=== PATIENT | male | born 1985 | race Caucasian/White ===

== ENCOUNTER 2023-10-26 23:29 | Inpatient (IN) | payer OTHER, SELFPAY ==
[2023-10-26] VITALS (7 sets, daily range): BP systolic 86–151; BP diastolic 20–115; BMI 31.0
[2023-10-26 22:15] LABS: % Basophils 0.5 % (0-2); % Eosinophils 1.1 % (0-6); % Immature Granulocytes 0.6 % (0-0.5); % Lymphocytes 26.4 % (20.5-51.1); % Neutrophils 61.4 % (42.2-75.2); Absolute Basophils 0.1 10^3/uL (0-0.2); Absolute Eosinophils 0.2 10^3/uL (0-0.7); Absolute Immature Granulocytes 0.1 10^3/uL (0-0.05); Absolute Lymphocytes 3.8 10^3/uL (1.2-3.4); Absolute Monocytes 1.4 10^3/uL (0.1-0.6); Absolute Neutrophils 8.7 10^3/uL (1.4-6.5); Hemoglobin 13.9 g/dL (13.0-18.0); Mean Corp Hgb Conc. 35.6 g/dL (33.0-37.0); Mean Corpuscular Hgb 31.8 pg (27.0-31.0); Mean Corpuscular Volume 89.2 fL (80.0-94.0); Mean Platelet Volume 8.5 fL (7.4-10.4); Nucleated Red Blood Cells % 0 % (-); Platelet Count 222 10^3/uL (130-400); Red Blood Cell Count 4.37 10^6/uL (4.70-6.10); Red Cell Dist. Width 11.6 % (11.5-14.5); White Blood Cell Count 14.2 10^3/uL (4.8-10.8)
--- NOTE | 2023-10-26 22:19 | ED.GENMED ---
History of Present Illness
General
Chief Complaint: Chest Pain
Source: patient and family
Exam Limitations: none
Time Seen by Provider: 10/26/23 22:06
Nursing documentation reviewed up to this point in time: agreed with
Travel History
Have you had any contact with someone who has COVID-19?: No
Do you have any symptoms of coronavirus? Fever > 100 degrees, chills, cough, shortness of breath, sore throat, loss of taste or smell, muscle aches, or headache?: No
History of Present Illness
History of Present Illness:
38-year-old male that presents with substernal chest pain that began around 8 AM this morning and quickly subsided. He states that around 8 PM, the pain returned and persisted. He states that the pain was initially 7 out of 10. Upon arrival to
the emergency department, his pain was 5 out of 10. It is currently 5 out of 10. EKG showed inferior STEMI. Patient denies any drug use, Specifically no cocaine use. Patient denies any current cardiac history. He reports no early cardiac
history in his family. Dr. Zimmerman, interventional cardiology notified. STEMI alert called at [id number]. Patient received Brilinta, aspirin, and heparin.
Review of Systems
Review of Systems
Allergies reviewed?: Yes
Other source history: family
All Other Systems: ROS reviewed and negative except as documented in HPI and ROS
Constitutional: Reports no symptoms
EENT: Reports no symptoms
Respiratory: Reports no symptoms
Cardiac: Reports chest pain
ABD/GI: Reports no symptoms
: Reports no symptoms
Musculoskeletal: Reports no symptoms
Skin: Reports no symptoms
Neurological: Reports no symptoms
Endocrine: Reports no symptoms
Hematologic/Lymphatic: Reports no symptoms
Psychiatric: Reports no symptoms
Phy Exam
General Physical Exam
General Presentation: well appearing and no apparent distress
General Skin: warm and dry
General Habitus: normal
General Mental: alert
General Hydration: appears well hydrated
ENT Exam
ENT Exam: EOMI, pharynx normal, neck supple and normocephalic
Eye Exam
Eye Exam: PERRL, cornea clear and conjunctiva normal
Cardiovascular Exam
Cardiovascular Exam: regular rate/rhythm, no edema, no murmur and normal peripheral pulses
Pulmonary Exam
Pulmonary Exam: lungs clear, no respiratory distress, no rales, no crackles, no rhonchi, no stridor, no wheezing and no cough
Gastrointestinal Exam
Gastrointestinal Exam: normal bowel sounds, non tender, soft, no organomegaly, no pulsatile mass and non distended
Neurological Exam
Neurological Exam: alert, oriented x3, no motor deficits and speech normal
Musculoskeletal Exam
Musculoskeletal Exam: full ROM and no edema
Skin Exam
Skin Exam: normal color, warm/dry, no rash and no petechia
Psychiatric Exam
Psychiatric Exam: normal mood/affect
Scores
Heart Score for Chest Pain Patients
STEMI patient?: Yes
Course
Orders/Labs/Results
Orders:
Orders
10/26/23 21:56
Electrocardiogram (*1) Urgent
Reason for Study: Chest Pain
EKG- Treatment ONCE
10/26/23 22:06
Aspirin Chewable [Low Strength Aspirin] 324 mg PO NOW STA
10/26/23 22:07
Electrocardiogram (*1) Stat
Reason for Study: Other
Other Reason for Exam: chest pain
EKG- Treatment ONCE
CR Chest Portable - 1 View Urgent
Comment:
Reason For Exam: cp
Reason Study Needs to be Portable: Unable to Transport
10/26/23 22:10
Complete Blood Count/With Diff Urgent
Comprehensive Metabolic Panel Urgent
Lipase Urgent
Magnesium Urgent
PTT Urgent
Prothrombin Time Urgent
TSH Urgent
Troponin I Urgent
10/26/23 22:15
Heparin 08097 Units/250 ml 25,000 units in 250 ml .ROUTE .STK-MED
Abnormal Lab Results
10/26/23
22:10
WBC 14.2 H 10^3/uL
(4.8-10.8)
RBC 4.37 L 10^6/uL
(4.70-6.10)
MCH 31.8 H pg
(27.0-31.0)
Abs Immat Gran (auto) 0.1 H 10^3/uL
(0-0.05)
Absolute Neuts (auto) 8.7 H 10^3/uL
(1.4-6.5)
Absolute Lymphs (auto) 3.8 H 10^3/uL
(1.2-3.4)
Absolute Monos (auto) 1.4 H 10^3/uL
(0.1-0.6)
Immature Gran % 0.6 H %
(0-0.5)
Monocytes % 10.0 H %
(1.7-9.3)
10/26/23 22:10
Vital Signs
Initial and Last Documented VS:
Initial Vital Signs
Temp Pulse Resp BP Pulse Ox
98.2 F 91 18 133/115 97
10/26/23 21:53 10/26/23 21:53 10/26/23 21:53 10/26/23 21:53 10/26/23 21:53
Last Documented Vital Signs
Temp Pulse Resp BP Pulse Ox
98.2 F 113 20 127/89 100
10/26/23 21:53 10/26/23 22:16 10/26/23 22:16 10/26/23 22:16 10/26/23 22:21
*Sole Dyer Interpretation
Rate: normal
Heart Rate: 98
Rhythm: sinus
*Critical Care Note
Total Time (30-74mins, 75-104mins- exclusive of procedures): 15
comment:
Critical care statement: A total of 15 minutes of critical care time was provided for this patient. This time is separate from time utilized to perform the aforementioned documented procedures. Aggregate critical care time includes only time
during which I was engaged in work directly related to the patient's care, as described above, whether at the bedside or elsewhere in the Emergency Department.
ED Attending Note
-
Portions of this chart may have been created with voice recognition software.� Occasional wrong word or��sound alike� substitutions may have occurred due to the inherent limitations of voice recognition software.
Discharge Plan
Departure
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
Date of Disposition: 10/26/23
Time of Disposition: 22:08
Admit to: [facility]
Admit to doctor: Elsie
Presentation/result/management discussed w/ accepting MD/DO: Elsie
Condition: Serious
Discharge Problem:
ST elevation (STEMI) myocardial infarction
Interventions
Interventions:
*Risk Screen - Suicide Last Done: 10/26/23 21:53
*General Assessment Last Done: 10/26/23 21:53
*Neglect/Abuse Screening Last Done: 10/26/23 21:53
ED- Fall Risk Assessment Last Done: 10/26/23 22:22
*ED COVID-19 Vaccine History Last Done: 10/26/23 22:19
ED- Cardiac Assessment Last Done: 10/26/23 22:19
Discharge Date and Time
Print Language: GEORGIAN
[2023-10-26 22:26] LABS: PT 11.9 Sec (11.4-14.6)
[2023-10-26 22:27] LABS: APTT 26.4 Sec (23.4-35.0)
[2023-10-26 22:41] LABS: ALT (SGPT) 71 U/L (0-50); AST (SGOT) 81 U/L (17-59); Albumin 4.6 g/dl (3.5-5.0); Alkaline Phosphatase 82 U/L (38-126); Blood Urea Nitrogen 11 mg/dl (9-20); Calcium 9.3 mg/dl (8.4-10.2); Carbon Dioxide 25 mmol/L (22-30); Chloride 102 mmol/L (98-107); Estimated Creatinine Clearance 122 ml/min; Glucose 116 mg/dl (70-99); Lipase 127 U/L (23-300); Sodium 135 mmol/L (135-145); Total Bilirubin 0.3 mg/dl (0.2-1.3); Total Protein 7.7 g/dl (6.3-8.2); eGFR > 60.00
[2023-10-26 22:59] LABS: ACT-LR - POC 170 Seconds (116-155)
--- NOTE | 2023-10-26 23:49 | ITS.CL.CATH ---
Steel Pourer - Catheterization
Cardiac Catheterization
Procedure Report:
LEFT HEART CATHETERIZATION
Date of Procedure: October 26, 2023
Referring: [facility] Emergency Department
PROCEDURES:
1. Left heart catheterization with coronary and single-plane left
INDICATION: This is a 38-year-old gentleman with a past medical history notable for anxiety and depression. He had taken Wellbutrin for some time but was recently started on Prozac. This morning he awoke and drank part of a couple coffee when he
experienced the mid epigastric and substernal chest discomfort. He attributed his symptoms to drinking coffee on an empty stomach. He laid down and the symptoms slowly resolved. He went about his day with 4 children without any difficulties. He
played light football in his backyard with his sons and experienced no chest discomfort. This evening while at rest he developed recurring symptoms similar to that experienced in the morning. The symptoms began around 8 PM and persisted for
several hours at which point the family made a decision to seek medical attention at [facility] emergency department. His electrocardiogram was notable for 0.[address] elevation in lead II and [address] elevation in lead III and aVF. STEMI
alert was activated. The patient appeared fairly comfortable when I arrived. Laboratory blood work had been sent and ultimately his troponin returned at 7.71 ng/mL. He is referred for coronary angiography
ACCESS: Right radial artery, 6 Yoruba sheath
HEMODYNAMICS : (mmHg)
AO (s/d) : 116/86
LV (s/d) : 121/19
LVEDP : 30
CORONARY FINDINGS
DOMINANCE: Right
LEFT MAIN: Normal
LEFT ANTERIOR DESCENDING: The LAD is a large-caliber vessel that arises normally from the left main and runs in the anterior interventricular groove supplying several small diagonal branches. No discrete obstructive stenosis is noted. The LAD
wraps around the apex.
CIRCUMFLEX: The circumflex is a large nondominant vessel free of significant obstructive stenosis
RIGHT CORONARY ARTERY: The right coronary artery is a large-caliber dominant vessel that supplies a moderate-sized PDA and moderate-sized posterolateral branch. No significant coronary disease is noted.
VENTRICULOGRAPHY: Left ventriculography was performed in an BARROW projection. The digital single-plane left ventricular ejection fraction was estimated at 50% with mild anterolateral hypokinesis noted
RADIATION SUMMARY: Fluoro Time (min): 3.2, Dose (mGy): 375.5, DAP (Gy.cm2) : 37
Closure Device: TR band
CONCLUSIONS
1. Inferior ST elevation with elevated troponin and no obvious culprit stenosis identified
2. Mild anterolateral hypokinesis with preserved LVEF estimated at 50%
RECOMMENDATIONS
1. Continue to trend troponin
2. Begin IV heparin. Will decide if CT angiogram to exclude a pulmonary embolism would be helpful
3. Will check echocardiogram in the morning
4. Aspirin with probable addition of clopidogrel
Copy to: Dr. Kennedy Baker
[2023-10-27] VITALS (11 sets, daily range): BP systolic 104–127; BP diastolic 59–88
[2023-10-27] MEDS: TOPROL XL 12.5 MG PO (00:09)
[2023-10-27] MEDS: LIPITOR 80 MG PO (00:09)
[2023-10-27 00:43] LABS: Hematocrit 39.1 % (39.0-52.0); Hemoglobin 13.4 g/dL (13.0-18.0); Mean Corp Hgb Conc. 34.3 g/dL (33.0-37.0); Mean Corpuscular Hgb 31.5 pg (27.0-31.0); Mean Platelet Volume 8.9 fL (7.4-10.4); Platelet Count 199 10^3/uL (130-400); Red Blood Cell Count 4.25 10^6/uL (4.70-6.10); Red Cell Dist. Width 11.6 % (11.5-14.5); White Blood Cell Count 13.6 10^3/uL (4.8-10.8)
[2023-10-27 00:45] LABS: APTT 84.2 Sec (23.4-35.0)
--- NOTE | 2023-10-27 01:17 | PTCARENOTE ---
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 R radial band intact, no oozing, R radial pulse palpable, no hematoma. Pt c/o of 1/10 chest discomfort. More at bedside. Educated pt and pt's on plan of care. Answered all
questions. Pt denies any SOB, lightheadedness, dizziness, or worsening/radiating CP. Pt informed to notify RN if any changes, call aguilar within reach.
[2023-10-27] MEDS: HEPARIN 25000 UNITS/250 ML IV (03:26)
[2023-10-27 06:10] LABS: HDL Cholesterol 38 mg/dl; LDL Cholesterol, Calculated 76 mg/dl; Total Cholesterol 129 mg/dl (50-199); Triglyceride 77 mg/dl (10-149); Very Low Density Lipoprotein 15 mg/dl (0-30)
[2023-10-27 08:46] LABS: Glycohemoglobin (HgbA1c) 5.7 % (4.0-5.6)
[2023-10-27] MEDS: PROTONIX 40 MG PO (09:38)
[2023-10-27] MEDS: LOW STRENGTH ASPIRIN 81 MG PO (09:38)
[2023-10-27] MEDS: TOPROL XL 25 MG PO ×2 (09:38→20:11)
--- NOTE | 2023-10-27 09:43 | CM ---
Met with and Mrs. Huff to review discharge plans. He states prior to admission he resides with his spouse in a two story home with three steps to enter. He states he has a full flight of steps to get to bedroom/full bathroom. He states he
has a powder room on the first floor. He states prior to admission he was independent with ambulation and adls. He states he has a PICC line for ABX. Telephone call to [facility] to confirm they are the provider. Left message. He
states he has crutches at home and no other DME. He states he has a prescription plan. Medical work-up in progress. The discharge plan is to return home with his spoise when medically stable.
--- NOTE | 2023-10-27 10:16 | CM ---
Reviewed chart. Met with and Mrs. Hankins to review discharge plans. He states prior to admission he resides with his spouse in a two story home with three steps to enter. He states he has a full flight of steps to get to bedroom/full bathroom.
He states he has a powder room on the first floor. He states prior to admission he was independent with ambulation and adls. He states he does not have any DME in the home. He states he has a prescription plan. Medical work-up in progress. The
discharge plan is to retrun home with his spouse when medically stable.
--- NOTE | 2023-10-27 10:19 | W.PN.CARDCBS ---
Addendum entered and electronically signed by Meek Lee MD 10/27/23 13:00:
38-year-old man with anxiety and depression but no prior cardiac history who developed intermittent substernal discomfort on October 25 and was sent to cardiac catheterization laboratory with a troponin of 7.[address] segment elevation on his
electrocardiogram. Cardiac catheterization was normal, peak troponin 24.7. Currently with vague substernal discomfort better lying down
Allergies: None
Outpatient medications: Wellbutrin XL 150 mg a day and fluoxetine 10 mg daily
Current meds: IV heparin, atorvastatin 80 mg a day on hold, pantoprazole, metoprolol ER 25 twice daily, aspirin 81 mg a day, Wellbutrin 150 mg daily, clopidogrel 75 mg daily
Past medical history: Anxiety/depression
PSH: Noncontributory
SH: , employed, 2 children, rare alcohol, no tobacco
FH: Noncontributory
ROS negative except as above
124/83, pulse 88, respiratory rate 18, afebrile
No acute distress, at bedside, head neck exam unremarkable, lungs clear, regular rate and rhythm, no rub, abdomen benign, extremities without clubbing cyanosis or edema distal pulses okay neuro nonfocal musculoskeletal intact
ECG sinus tach, predominantly inferior ST segment elevation with small Q waves and possible ID depression
White count 13.6, BUN/creatinine 11 and 1.0, troponin 23.4, total cholesterol 129, LDL 76, HDL 38
Impression:
Acute elevation in troponin with inferior segment elevation but normal coronary arteries
Differential: Pericarditis/myocarditis, coronary artery spasm (but non-smoker, no hypercholesterolemia)
Anxiety/depression
Recent viral syndrome
Elevated transaminases
Plan:
He looks well at present, but his presentation is difficult to explain as elements of his symptoms and findings not classic for pericarditis or myocarditis, and not high risk for coronary artery spasm
Await echocardiogram. Await CT scan of chest
Continue medications for now but I think it is reasonable to stop heparin pending CAT scan.
If concern regarding spasm remains, would stop beta-ty and aspirin, add amlodipine.
Original Note:
Today's Communication / Plan
-
Repeat EKG
Echo pending
CT of chest to rule out PE
Continue heparin for 24 hours then transition to aspirin and Plavix with load
Continue to monitor LFTs, hold atorvastatin this evening
Impression / Plan
-
PRIMARY CARE PHYSICIAN: Dr. Kennedy Lange
Country Sales Manager: None prior to admission, initial consult Dr. Zimmerman
Impression:
Presented 10/26/2023 with chest pain/GERD symptoms
Abnormal troponin, peak 24.7 with concern for STEMI
Abnormal EKG
No significant coronary disease on catheterization
Possible myocarditis
Abnormal LFTs
Anxiety/depression
Cardiac catheterization 10/26/2023: HEMODYNAMICS : (mmHg) AO (s/d) : 116/86; LV (s/d) : 121/19; LVEDP : 30
LM: Normal; LAD D normal; circumflex: Normal. RCA: Normal. Inferior ST elevation with elevated troponin and no obvious culprit stenosis identified. Mild anterolateral hypokinesis with preserved LVEF estimated at 50%
Echo 10/27/2023: pending
Plan:
-Presented 10/26/2023 with intermittent chest pain/GERD symptoms and abnormal ECG.
-Abnormal troponin, peaked 24.7 with concern for STEMI for which he underwent cardiac cath which demonstrated no significant coronary disease on catheterization.
-Continue heparin gtt for 24 hours then start Plavix 600 mg x 1 followed by 75 mg daily with ASA 81 mg
-Check CT of chest PE protocol to exclude PE. If evidence of PE will need anticoagulation.
-Echo pending
-Lipids prestatin TC 129, HDL 38, LDL 76, triglycerides 77. Now on atorvastatin
-Abnormal LFTs. Admits to 1-2 drinks a day. Discussed abstinence. Hold atorvastatin this evening. Continue to monitor and trend
-Continue Toprol. New this admission
-Consider Colchicine for possible pericarditis/myocarditis
-Continue Wellbutrin. Only took 2 doses of Prozac started 10/25/23. Will hold Prozac due to interaction with Plavix
HPI 10/26/2023:
The patient is a 38-year-old gentleman with a past medical history notable for anxiety and depression for which he is on bupropion and was just started on Prozac. He presents to [facility] following the development of substernal chest
pressure. The patient reports that he awoke this morning and experienced chest tightness which resolved spontaneously. The symptoms began after drinking a cup of coffee and he thought that it was more of an upset stomach than cardiac in nature. He
spent the day with his family and actually played football outside with his young sons. He was running around with no symptoms. This evening his chest pain returned at approximately 8 p.m.. His is not sure if the symptoms are related to anxiety
or truly cardiac in nature. Ultimately, at about 10 to 10:30 p.m. the decision was made to seek further medical attention. The patient states that his symptoms were 6/10 in intensity on arrival and by the time I arrived at his bedside his symptoms
were already down to 3/10 in intensity and he looked very comfortable. His electrocardiogram is notable for [address] elevation in leads 2, 3, and AVF. His troponin returned at 7.71. He stated that he had a sore throat and cough and flu-like
illness for the past several days.
Progress Note - Country Sales Manager
Subjective
Date of Service: October 27, 2023
Patient seen and examined. at bedside. Patient continues to have brief intermittent episodes of left-sided chest discomfort that can last several seconds to 10 minutes. Pain comes on without rhyme or reason and is nonexertional. He states
it actually is better when laying down. He denies associated shortness of breath, dizziness, lightheadedness or palpitations.
Objective
Labs:
10/27/23 00:20
10/26/23 22:10
Labs
Hgb 13.4 g/dL (13.0-18.0) 10/27/23 00:20
Hct 39.1 % (39.0-52.0) 10/27/23 00:20
Plt Count 199 10^3/uL (130-400) 10/27/23 00:20
PT 11.9 Sec (11.4-14.6) 10/26/23 22:10
INR 0.90 10/26/23 22:10
APTT 84.2 Sec (23.4-35.0) H 10/27/23 00:19
Sodium 135 mmol/L (135-145) 10/26/23 22:10
Potassium 4.0 mmol/L (3.5-5.1) 10/26/23 22:10
BUN 11 mg/dl (9-20) 10/26/23 22:10
Creatinine 1.0 mg/dL (0.7-1.3) 10/26/23 22:10
Glucose 116 mg/dl (70-99) H 10/26/23 22:10
Troponins
10/26/23 10/27/23 10/27/23
22:10 00:19 05:34
Troponin I 7.710 H* 18.000 H* D 24.700 H* D
Vital Signs and I&O:
Vital Signs
Temp Pulse Resp BP Pulse Ox
99.3 F 88 18 124/83 99
10/27/23 07:24 10/27/23 09:38 10/27/23 07:24 10/27/23 09:38 10/27/23 07:24
Vital Signs
Temp Pulse Resp BP Pulse Ox
99.3 F 88 18 124/83 99
10/27/23 07:24 10/27/23 09:38 10/27/23 07:24 10/27/23 09:38 10/27/23 07:24
Intake & Output
10/25/23 10/26/23 10/27/23 10/28/23
06:59 06:59 06:59 06:59
Intake Total 960 / 960
Balance 960 / 960
Physical Exam
Physical Exam
GEN: No distress, awake, Ox3
HEENT: supple, anicteric, mmm
LUNGS: CTA, no wheezes/rales
CV: Reg, S1/S2, no murmurs, rubs or gallops
ABD: soft, BS+, NT/ND
EXT: No edema, clubbing or cyanosis; right radial access site with small amount of heme on dressing. Palpable radial and ulnar pulses. Good cap refill. No evidence of hematoma
NEURO: Gross non-focal
SKIN: No rash, warm, dry, pink
[2023-10-27 10:23] LABS: ALT (SGPT) 62 U/L (0-50); AST (SGOT) 127 U/L (17-59)
[2023-10-27 10:26] LABS: APTT 32.1 Sec (23.4-35.0)
[2023-10-27] MEDS: WELLBUTRIN XL (24 hour extended release) 150 MG PO (12:19)
[2023-10-27] MEDS: PLAVIX 600 MG PO (12:19)
--- NOTE | 2023-10-28 01:08 | PTCARENOTE ---
No complaints when questioned earlier. Sleeping at present. AICD site wnl, dressing dry and intact. HOB elevated 30 degrees.
--- NOTE | 2023-10-28 01:22 | PTCARENOTE ---
No complaints of pain or discomfort. Sleeping at present.
[2023-10-28 02:39] VITALS: BP 104/67
[2023-10-28 04:20] LABS: ALT (SGPT) 60 U/L (0-50); AST (SGOT) 107 U/L (17-59); Alkaline Phosphatase 86 U/L (38-126); Blood Urea Nitrogen 12 mg/dl (9-20); Calcium 9.3 mg/dl (8.4-10.2); Carbon Dioxide 23 mmol/L (22-30); Chloride 106 mmol/L (98-107); Estimated Creatinine Clearance 122 ml/min; Glucose 101 mg/dl (70-99); Potassium 4.5 mmol/L (3.5-5.1); Sodium 137 mmol/L (135-145); Total Bilirubin 0.8 mg/dl (0.2-1.3); eGFR > 60.00
[2023-10-28 08:15] VITALS: BP 110/74
[2023-10-28] MEDS: LOW STRENGTH ASPIRIN 81 MG PO (09:18)
[2023-10-28] MEDS: PLAVIX 75 MG PO (09:19)
[2023-10-28] MEDS: WELLBUTRIN XL (24 hour extended release) 150 MG PO (09:19)
[2023-10-28] MEDS: PROTONIX 40 MG PO (09:19)
[2023-10-28] MEDS: TOPROL XL PO (09:19)
[2023-10-28 11:25] VITALS: BP 108/75
--- NOTE | 2023-10-28 11:32 | W.PN.CARDCBS ---
Addendum entered and electronically signed by Violeta Portillo PA-C 10/30/23 16:39:
[id number]
Addendum entered and electronically signed by Violeta Portillo PA-C 10/28/23 13:46:
Impression:
Chest pain 10/26/23
ACS and STEMI by ECG 10/26/23, but ultimately managed as a nonischemic myocardial injury Troponin elevation due to no significant CAD on cath
peak Troponin 24.7
No significant coronary disease on catheterization
CM EF 45-50% with possible mild inferolateral and basal to mid lateral hypokinesis by echo 10/27/23
Abnormal LFTs
Anxiety/depression
Addendum entered and electronically signed by Kristian Alvarez MD 10/28/23 12:28:
I saw and examined the patient.
The Intelligent Systems Engineer's note was reviewed and I agree with the note.
Comment:
GEN: No distress, awake, Ox3
HEENT: supple, anicteric, mmm
LUNGS: CTA, no wheezes/rales
CV: Reg, S1/S2, no murmur
ABD: soft, BS+, NT/ND
EXT: No edema
NEURO: Gross non-focal
SKIN: No rash
Plan:
Reviewed results of catheterization with patient and his family. The etiology of his event remains unclear. Possible coronary spasm.
Continue aspirin and Plavix.
Will add atorvastatin. Should have a repeat echo in 2 to 3 months.
LFTs are improving. Etiology remains unclear. Repeat comprehensive metabolic panel in 1 week.
Will hold on restarting Prozac due to possible interaction with Plavix. Continue Wellbutrin.
Original Note:
Today's Communication / Plan
-
Restart atorvastatin
Stop Toprol XL and start Cardizem CD
Cont aspirin and Plavix
Cont Wellbutrin, but stop Prozac due to possible interaction with Plavix
Impression / Plan
-
PRIMARY CARE PHYSICIAN: Dr. Kennedy Lange
Blood And Plasma Laboratory Assistant: None prior to admission, initial consult Dr. Zimmerman
Impression:
Chest pain 10/26/23
ACS, STEMI by ECG 10/26/23
peak Troponin 24.7
No significant coronary disease on catheterization
CM EF 45-50% with possible mild inferolateral and basal to mid lateral hypokinesis by echo 10/27/23
Abnormal LFTs
Anxiety/depression
Cardiac catheterization 10/26/2023: HEMODYNAMICS : (mmHg) AO (s/d) : 116/86; LV (s/d) : 121/19; LVEDP : 30
LM: Normal; LAD D normal; circumflex: Normal. RCA: Normal. Inferior ST elevation with elevated troponin and no obvious culprit stenosis identified. Mild anterolateral hypokinesis with preserved LVEF estimated at 50%
Echo 10/27/2023: EF 45-50%, possible mild inferolateral and basal to mod lateral hypokinesis, stage I diastolic dysfunction, trace MR, no
Plan:
-Patient with chest pain, STEMI by ECG and Troponin up to 24.7 although no evidence of obstructive CAD by cath, no culprit lesion found. Possibilities include myocarditis, flush occlusion of a small vessel not visualized on angiogram or spasm. Will
stop Toprol XL and start Cardizem CD 120 mg daily
-Cont aspirin and Plavix
-LFTs trending down. Will restart atorvastatin 80 mg daily that was started earlier this admission.
-CT was negative for PE
-Continue Wellbutrin. Only took 2 doses of Prozac started 10/25/23. Will stop Prozac due to interaction with Plavix and he can follow up with his PCP to see if there is an alternative.
-D/C to home 10/28/23
HPI 10/26/2023:
The patient is a 38-year-old gentleman with a past medical history notable for anxiety and depression for which he is on bupropion and was just started on Prozac. He presents to [facility] following the development of substernal chest
pressure. The patient reports that he awoke this morning and experienced chest tightness which resolved spontaneously. The symptoms began after drinking a cup of coffee and he thought that it was more of an upset stomach than cardiac in nature. He
spent the day with his family and actually played football outside with his young sons. He was running around with no symptoms. This evening his chest pain returned at approximately 8 p.m.. His is not sure if the symptoms are related to anxiety
or truly cardiac in nature. Ultimately, at about 10 to 10:30 p.m. the decision was made to seek further medical attention. The patient states that his symptoms were 6/10 in intensity on arrival and by the time I arrived at his bedside his symptoms
were already down to 3/10 in intensity and he looked very comfortable. His electrocardiogram is notable for [address] elevation in leads 2, 3, and AVF. His troponin returned at 7.71. He stated that he had a sore throat and cough and flu-like
illness for the past several days.
Progress Note - Blood And Plasma Laboratory Assistant
Subjective
Date of Service: October 28, 2023
No recurrence of chest pain
Objective
Labs:
10/27/23 00:20
10/28/23 02:57
Labs
Hgb 13.4 g/dL (13.0-18.0) 10/27/23 00:20
Hct 39.1 % (39.0-52.0) 10/27/23 00:20
Plt Count 199 10^3/uL (130-400) 10/27/23 00:20
PT 11.9 Sec (11.4-14.6) 10/26/23 22:10
INR 0.90 10/26/23 22:10
APTT 37.0 Sec (23.4-35.0) H 10/27/23 18:01
Sodium 137 mmol/L (135-145) 10/28/23 02:57
Potassium 4.5 mmol/L (3.5-5.1) 10/28/23 02:57
BUN 12 mg/dl (9-20) 10/28/23 02:57
Creatinine 1.0 mg/dL (0.7-1.3) 10/28/23 02:57
Glucose 101 mg/dl (70-99) H 10/28/23 02:57
Troponins
10/26/23 10/27/23 10/27/23
22:10 00:19 05:34
Troponin I 7.710 H* 18.000 H* D 24.700 H* D
10/27/23 10/27/23
10:02 17:30
Troponin I 23.400 H* Cancelled
Vital Signs and I&O:
Vital Signs
Temp Pulse Resp BP Pulse Ox
98.3 F 82 16 108/75 96
10/28/23 11:25 10/28/23 11:25 10/28/23 11:25 10/28/23 11:25 10/28/23 11:25
Vital Signs
Temp Pulse Resp BP Pulse Ox
98.3 F 82 16 108/75 96
10/28/23 11:25 10/28/23 11:25 10/28/23 11:25 10/28/23 11:25 10/28/23 11:25
Intake & Output
10/26/23 10/27/23 10/28/23 10/29/23
06:59 06:59 06:59 06:59
Intake Total 960 / 960 838 / 838
Balance 960 / 960 838 / 838
Physical Exam
Physical Exam
GEN: NAD. AAOx3
HEENT: EOMI, MMM
LUNGS: CTA B/L
CV: SR on tele
ABD: ND
EXT: No edema B/L
NEURO: Gross non-focal
SKIN: No rash
[2023-10-28 12:09] LABS: Amphetamines Negative (Negative); Barbiturates Negative (Negative); Benzodiazepines Negative (Negative); Buprenorphine Negative (Negative); Cocaine Negative (Negative); Marijuana Negative (Negative); Methadone Negative (Negative); Methamphetamines Negative (Negative); Opiates Negative (Negative); Phencyclidine Negative (Negative); Tricyclic Antidepressants Negative (Negative)
--- NOTE | 2023-10-28 12:19 | W.DS.TRANS ---
DC Summary - [employer]
-
Discharge Instructions:
Discharge Diagnosis/Procedures Chest pain and abnormal ECG concerning for ST
elevation myocardial infarction, but no culprit
stenosis on cardiac catheterization, non-
ischemic myocardial injury Troponin elevation,
elevated liver function tests that improved
Diet Low Fat
Activity Other activity
Additional Activity See attached sheet
Driving Restrictions As prior to admission
Bathing Restrictions OK to Shower
Blood Work Non-fasting blood work in 1 week to check kidney
and liver function
Instructions:
Stand-Alone Forms: DC Instructions- Cath/EP Lab
Changes to Home Medications: Yes
Discharge Medications:
DC Medications w/original date entered in [employer]
bupropion HCl 150 mg 24 hr tablet, extended release (Wellbutrin XL) 150 mg PO DAILY 10/26/23
aspirin 81 mg chewable tablet (Children's Aspirin) 81 mg PO DAILY Heart disease/condition #30 tabs 10/28/23
atorvastatin 80 mg tablet 80 mg PO QPM High cholesterol #30 tabs 10/28/23
clopidogrel 75 mg tablet 75 mg PO DAILY Heart disease/condition #30 tabs 10/28/23
diltiazem HCl 120 mg capsule,extended release 24 hr (Cardizem CD) 120 mg PO DAILY Heart disease/condition #30 caps 10/28/23
pantoprazole 40 mg tablet,delayed release 40 mg PO DAILY Gastrointestinal issue #30 tabs 10/28/23
Home Medication Changes
Prozac stopped
New to aspirin, Plavix, atorvastatin, Cardizem CD and Protonix
Pending Results: No
[2023-10-28] MEDS: CARDIZEM CD 120 MG PO (12:34)
== END 2023-10-28 13:56 | disposition home or self-care (01) | DRG 287 ==
LOC: IVU 23:29
PROVIDERS: Physician Assistant Medical; ADMITTING PHYSICIAN Internal Medicine Interventional Cardiology; EMERGENCY PHYSICIAN Student in an Organized Health Care Education/Training Program
PROC: B2151ZZ Fluoroscopy of Left Heart using Low Osmolar Contrast (ICD-10-PCS; 2023-10-26)
PROC: B2111ZZ Fluoroscopy of Multiple Coronary Arteries using Low Osmolar Contrast (ICD-10-PCS; 2023-10-26)
PROC: 4A023N7 Measurement of Cardiac Sampling and Pressure, Left Heart, Percutaneous Approach (ICD-10-PCS; 2023-10-26)
DX: R07.89 Other chest pain (principal); I42.9 Cardiomyopathy, unspecified; I5A Non-ischemic myocardial injury (non-traumatic); F32.A Depression, unspecified; F41.9 Anxiety disorder, unspecified
CPT/HCPCS: 71275; 80053; 80061; 80306; 83036; 83690; 83735; 84443; 84450; 84460; 84484; 85025; 85027; 85610; 85730; 93005; 93306; 93458; 99285; Q9967

== ENCOUNTER 2023-11-25 08:30 | Outpatient (RCR) | payer OTHER, SELFPAY | END 2023-11-25 23:59 | disposition home or self-care (01) | LOC: CRHB 08:30 | PROVIDERS: ATTENDING PHYSICIAN Internal Medicine Cardiovascular Disease | DX: I21.01 ST elevation (STEMI) myocardial infarction involving left main coronary artery (principal) | CPT/HCPCS: G0422; G0423 ==

== ENCOUNTER 2023-12-17 06:41 | Outpatient (RCR) | payer OTHER, SELFPAY | END 2023-12-17 23:59 | disposition home or self-care (01) | LOC: CRHB 06:41 | PROVIDERS: ATTENDING PHYSICIAN Internal Medicine Cardiovascular Disease | DX: I21.01 ST elevation (STEMI) myocardial infarction involving left main coronary artery (principal) | CPT/HCPCS: 93797; 93798; G0422; G0423 ==

== ENCOUNTER → 2023-12-18 07:29 | Outpatient (REF) | payer OTHER, SELFPAY | LOC: PAVMRI 07:29 | PROVIDERS: ATTENDING PHYSICIAN Internal Medicine Cardiovascular Disease; FAMILY PHYSICIAN Nurse Practitioner Adult Health | DX: R07.2 Precordial pain (principal); I42.9 Cardiomyopathy, unspecified | CPT/HCPCS: 75561; 75565; A9585 ==